=== PATIENT | male | born 1985 | race Caucasian/White ===

== ENCOUNTER 2021-05-03 23:57 | Emergency (ER) | payer SELFPAY ==
[~2021-05-03] VITALS: Ht 182.9 cm; Wt 95.3 kg
[2021-05-04] MEDS ORDERED: ONDANSETRON HCL 4 MG/2 ML VIAL IV ONE (04:30)
[2021-05-04] MEDS ORDERED: MORPHINE SULFATE INJECTION 2 MG/ML SYRG IV ONE ×2 (04:30→05:00)
[2021-05-04 05:33] VITALS: BP 130/75
== END 2021-05-04 05:39 | disposition home or self-care (01) ==
LOC: EDBD 23:57 → ER 05-04
DX: S82.831A Other fracture of upper and lower end of right fibula, initial encounter for closed fracture (principal); Z88.0 Allergy status to penicillin; W19.XXXA Unspecified fall, initial encounter; Y93.89 Activity, other specified; Y92.89 Other specified places as the place of occurrence of the external cause; Y99.8 Other external cause status
CPT/HCPCS: 29515; 73600; 99283; J2270; J2405

== ENCOUNTER 2021-05-08 06:07 | Emergency (ER) | payer MEDICAID, OTHER ==
[~2021-05-08] VITALS: Ht 177.8 cm; Wt 90.7 kg
[2021-05-08 06:55] VITALS: BP 127/82
[2021-05-08] MEDS ORDERED: LIDOCAINE VISCOUS 2% 15ML UD MT ONE (07:00)
== END 2021-05-08 07:47 | disposition home or self-care (01) ==
LOC: ER 06:07 → EDBD 06:07 → ER 07:47
DX: T16.2XXA Foreign body in left ear, initial encounter (principal); Z88.0 Allergy status to penicillin; W45.8XXA Other foreign body or object entering through skin, initial encounter; Y93.89 Activity, other specified; Y92.89 Other specified places as the place of occurrence of the external cause; Y99.8 Other external cause status
CPT/HCPCS: 69200

== ENCOUNTER 2025-02-17 14:15 | Emergency (ER) | payer MEDICAID ==
[~2025-02-17] VITALS: Ht 182.9 cm; Wt 104.5 kg
[2025-02-17] MEDS: IBUPROFEN 600 MG TAB PO ONE (14:50)
[2025-02-17] MEDS: CLINDAMYCIN HCL 150 MG CAP PO ONE (14:50)
--- NOTE | 2025-02-17 16:14 | ED.PDOC ---
Eye-HPI HPI Comments 39y M who presents to the ED for chief complaint of dental problem. Pt states he has wisdom tooth that are newly growing and states over the past 1 year, he has been having increasing pain in bilateral wisdom tooth. Pt states he has been taking pain medications and noted to have multiple dental caries and was placed on antibiotics multiple times in the ED but presents today due to new dental caries. Pt otherwise has been taking pain medications and states due to not being able to get dental insurance, pt has not been able to get wisdom tooth removal. Pt otherwise rates the pain 10/10. Pt denies any other symptoms at this time. Chief Complaint: Tooth Pain Time Seen by MD: 14:16 Primary Care Provider: NONE Reviewed Notes: Medications, Allergies Allergies: Coded Allergies: Penicillins (Verified Allergy, Unknown, 01/04/14) Information Source: Patient Mode of Arrival: Ambulatory Brought in by: self Past Medical History PAST MEDICAL HISTORY: Denies Surgical History: Denies all surgeries Family History Family History: Unknown Social History Smoker: Non-Smoker Alcohol: Denies ETOH Use Drugs: Denies Drug Use Lives In: Home Constitutional: denies: chills, diaphoresis, fatigue, fever, malaise, sweats, weakness, others EENTM: reports: others (tooth pain); denies: blurred vision, double vision, ear bleeding, ear discharge, ear drainage, ear pain, ear ringing, eye pain, eye redness, hearing loss, mouth pain, mouth swelling, nasal discharge, nose bleeding, nose congestion, nose pain, photophobia, tearing, throat pain, throat swelling, voice changes Respiratory: denies: cough, hemoptysis, orthopnea, SOB at rest, shortness of breath, SOB with excertion, stridor, wheezing, others Cardiovascular: denies: chest pain, dizzy spells, diaphoresis, Dyspnea on exertion, edema, irregular heart beat, left arm pain, lightheadedness, palpitations, PND, syncope, others Gastrointestinal: denies: abdomen distended, abdominal pain, blood streaked bowels, constipated, diarrhea, dysphagia, difficulty swallowing, hematemesis, melena, nausea, poor appetite, poor fluid intake, rectal bleeding, rectal pain, vomiting, others Genitourinary: denies: burning, dysuria, flank pain, frequency, hematuria, incontinence, penile discharge, penile sore, pain, testicle pain, testicle swelling, urgency, others Neurological: denies: dizziness, fainting, headache, left sided numbness, left sided weakness, numbness, paresthesia, pre-existing deficit, right sided numbness, right sided weakness, seizure, speech problems, tingling, tremors, weakness, others Musculoskeletal: denies: back pain, gout, joint pain, joint swelling, muscle pain, muscle stiffness, neck pain, others Integumetry: denies: bruises, change in color, change in hair/nails, dryness, laceration, lesions, lumps, rash, wounds, others Allergic/Immunocompromised: denies: Difficulty Healing, Frequent Infections, Hives, Itching, others Hematologic/Lymphatic: denies: anemia, blood clots, easy bleeding, easy bruising, swollen glands, others Endocrine: denies: excessive hunger, excessive sweating, excessive thirst, excessive urination, flushing, intolerance to cold, intolerance to heat, unexplained weight gain, unexplained weight loss, others Psychiatric: denies: anxiety, bipolar disorder, depression, hopeless, panic disorder, schizophrenia, sleepless, suicidal, others All Other Systems: Reviewed and Negative Physical Exam General Appearance: Mild Distress HEENT: Other (multiple dental caries noted ) Neck: Full Range of Motion, Non-Tender, Normal, Normal Inspection Respiratory: Chest Non-Tender, Lungs Clear, No Accessory Muscle Use, No Respiratory Distress, Normal Breath Sounds Cardiovascular: No Edema, No JVD, No Murmur, No Gallop, Normal Peripheral Pulses, Regular Rate/Rhythm Breast Exam: Deferred Gastrointestinal: No Organomegaly, Non Tender, No Pulsatile Mass, Normal Bowel Sounds, Soft Genitalia: Deferred Pelvic: Deferred Rectal: Deferred Extremities: No calf tenderness, Normal capillary refill, Normal inspection, Normal range of motion, Non-tender, No pedal edema Musculoskeletal : Apperance: Normal Neurologic: Alert, manager military II-XII nml as Tested, No Motor Deficits, Normal Affect, Normal Mood, No Sensory Deficits Cerebellar Function: Normal Reflexes: Normal Skin: Dry, Normal Color, Warm Lymphatic: No Adenopathy Was a procedure done? Was a procedure done?: No EENT DIFF Eye: N/A Sore Throat: Peritonsillar Abscess, Peritonsillar Cellulitis, Pharyngitis, Other (dental caries, ) X-Ray, Labs, Meds, VS Vital Signs Date Time Temp Pulse Resp B/P (MAP) Pulse Ox O2 Delivery O2 Flow Rate FiO2 02/17/25 15:08 112 20 95 Room Air 02/17/25 15:08 99.0 112 20 164/90 (114) 95 99.0 02/17/25 14:30 98.7 104 14 170/102 (124) 100 98.7 Current Medications Medications (Trade) Dose Ordered Sig/Jean Route Start Time Stop Time Status Last Admin Ibuprofen (Motrin Tablet) 600 mg ONCE ONCE PO 02/17/25 14:30 02/17/25 14:31 DC 02/17/25 14:50 Clindamycin HCl (Cleocin Capsule) 300 mg ONCE ONCE PO 02/17/25 14:30 02/17/25 14:31 DC 02/17/25 14:50 Time of 1ST Reevaluation: 16:26 Reevaluation 1ST: Improved Patient Education/Counseling: Diagnosis, Treatment Family Education/Counseling: No Family Present SEPSIS Sepsis Screen Date sepsis recognized/suspect: Feb 17, 2025 Time Sepsis recognized/suspect: 1427 Recent Procedure: No On Antibiotic Therapy: No Respiratory Rate >20: No Heart Rate >90: No Temp<36 C (96.8 F) or >38.3 C: No SBP <90 or MAP <65 mmHG: No New Acute Mental Status Change: No Is the patient on CPAP, BIPAP,: No Vital Signs Date Time Temp Pulse Resp B/P (MAP) Pulse Ox O2 Delivery O2 Flow Rate FiO2 02/17/25 15:08 112 20 95 Room Air 02/17/25 15:08 99.0 112 20 164/90 (114) 95 99.0 02/17/25 14:30 98.7 104 14 170/102 (124) 100 98.7 Medications Medications Dose Ordered Sig/Jean Route Start Time Stop Time Status Last Admin Dose Admin Clindamycin HCl 300 mg ONCE ONCE PO 02/17/25 14:30 02/17/25 14:31 DC 02/17/25 14:50 Ibuprofen 600 mg ONCE ONCE PO 02/17/25 14:30 02/17/25 14:31 DC 02/17/25 14:50 Departure 1 Departure Time of Disposition: 16:24 (Patient likely with a dental infection. We will discharge patient home with outpatient follow up.) Impression: Primary Impression: Dental infection Disposition: HOME / SELF CARE / HOMELESS Condition: Stable Additional Instructions: You likely have a dental infection. I have prescribed antibiotics. Please take as directed It is important to follow up with the dentist. For pain you can take the followinam: Ibuprofen 400mg with food Noon: Acetaminophen 1000mg 4pm: Ibuprofen 400mg with food 8pm: Acetaminophen 1000mg You should follow up with your regular doctor within one week to ensure you are doing better. If your symptoms worsen or you have any other concerns then please return to the ER. e-Prescriptions Clindamycin Hcl (Clindamycin Hcl) 300 Mg Cap 1 CAP PO TID for 7 Days, #21 CAP Prov: CHANG JARA MD 02/17/25 Discharged With: Self Critical Care Note Critical Care Time?: No Stability Stability form required: No Heart Score Heart Score: Heart Score Response (Comments) Value History N/A 0 EKG N/A 0 Age N/A 0 Risk Factors N/A 0 Troponin N/A 0 Total 0 I personally scribed for CHANG JARA MD ([email or web address]) on 02/17/25 at 16:14. Electronically submitted by Shahnaz Jovel ([employer]). I personally scribed for CHANG JARA MD ([email or web address]) on 02/17/25 at 16:22. El ectronically submitted by Shahnaz Jovel ([employer]). CHANG JARA MD Feb 17, 2025 16:14
[2025-02-17] MEDS ORDERED: CLIN1CAP70 PO (16:25)
[2025-02-17 17:11] VITALS: BP 143/88; PULSE 98; RESP 18; TEMP 98.7; O2SAT 98
== END 2025-02-17 17:14 | disposition home or self-care (01) ==
LOC: ER 14:15
DX: K04.7 Periapical abscess without sinus (principal); Z88.0 Allergy status to penicillin; K02.9 Dental caries, unspecified